=== PATIENT | male | born 2000 | race Caucasian/White ===

== ENCOUNTER 2023-12-08 14:19 | Emergency (ER) | payer MEDICAID ==
[~2023-12-08] VITALS: Ht 177.8 cm; Wt 124.3 kg
[2023-12-08 14:30] VITALS: BP 144/100; PULSE 107; RESP 18; TEMP 97; O2SAT 97
[2023-12-08] MEDS: DICYCLOMINE HCL LIQUID 10 MG/5 ML UDC PO ONE (15:04)
[2023-12-08] MEDS: ALUMINUM HYD/MAG/SIMETHICONE 30 ML UDC PO ONE (15:05)
[2023-12-08] MEDS: METOCLOPRAMIDE 10 MG/2 ML INJ VIAL IM ONE (15:10)
[2023-12-08] MEDS ORDERED: BISM262T5 PO (15:56)
[2023-12-08] MEDS ORDERED: BEN10 PO (15:56)
[2023-12-08] MEDS ORDERED: ONDA-188 PO (15:56)
== END 2023-12-08 16:02 | disposition home or self-care (01) ==
LOC: MED 14:19
DX: K52.9 Noninfective gastroenteritis and colitis, unspecified (principal); Z79.899 Other long term (current) drug therapy
CPT/HCPCS: 96372; 99283; J2765